=== PATIENT | male | born 1995 | race Caucasian/White ===

== ENCOUNTER 2017-06-16 11:25 | Day surgery (SDC) | payer BC ==
--- NOTE | 2017-06-16 12:21 | HP ---
PROCEDURE: Operation today. OUTPATIENT HISTORY: Mr. Elieser Chang is a 22-year-old male, [employer] student, lives in an apartment with roommates from [facility]. He has had 5 years ago an umbilical infection, required antibiotics and now presents again with the same. He was seen at [facility], had a CAT scan and labs, which we are waiting on. He has been started on clindamycin. He was seen today, had liquids this m orning. Otherwise, n.p.o. except for the water. ALLERGIES: None. TOBACCO: None. ALCOHOL: None. MEDICATIONS: None. PAST SURGICAL HISTORY: Bilateral meniscectomies, ear surgery. PAST MEDICAL HISTORY: Noncontributory. REVIEW OF SYSTEMS: Ten-point noncontributory. PHYSICAL EXAMINATION: VITAL SIGNS: 369 pounds, 5 foot 11 inches, 51 BMI, 142/81, 109, and 97 degrees. HEENT: Unremarkable. LUNGS: Clear to auscultation. CARDIAC: Regular rate and rhythm without murmur or gallop. ABDOMEN: Obese, soft, nontender. Supraumbilical area reveals a brownish drainage from a tender mass -like effect supraumbilical area. This is tender without overlying redness. There is about a 3 cm m ass. ASSESSMENT AND PLAN: Umbilical cyst abscess versus hernia. We would plan exploration in the operati ng room, repair of hernia present, excision of cyst, drainage of infection, risk of infection, bleedi ng, reoperation explained and he consents.
[2017-06-16] MEDS ORDERED: Ketorolac Tromethamine 30 MG/ML VIAL ONE (12:43)
[2017-06-16] MEDS ORDERED: Ketorolac Tromethamine 30 MG/ML VIAL IVP SCH (12:45)
[2017-06-16] MEDS ORDERED: Acetaminophen 1,000 MG in Premix Bag 1 BAG IVPB SCH (12:45)
[2017-06-16] MEDS ORDERED: Scopolamine 1.5 mg/72 hour Patch ONE (12:50)
[2017-06-16] MEDS ORDERED: Meropenem 2 GM, Admixture Fee 1 EACH in Sodium Chloride 0.9% 100 ML IVPB SCH (13:00)
[2017-06-16] MEDS ORDERED: Fentanyl 100 MCG/2 ML VIAL ONE (14:01)
[2017-06-16] MEDS ORDERED: Bupivacaine/Epinephrine 0.25% 30 ML VIAL ONE (14:02)
[2017-06-16] MEDS ORDERED: CEFAZOLIN/Water 2 GM/20 ML SYRINGE ONE (14:07)
[2017-06-16] MEDS ORDERED: traMADol HCl 50 MG TAB ONE (16:51)
[2017-06-16] MEDS ORDERED: PROPOFOL 200 MG/20 ML VIAL ONE (19:39)
[2017-06-16] MEDS ORDERED: Lidocaine 1% PF 5 ML VIAL ONE (19:39)
[2017-06-16] MEDS ORDERED: Dexamethasone 20 MG/5 ML VIAL ONE (19:39)
--- NOTE | 2017-06-16 21:23 | OP ---
DATE OF PROCEDURE: 06/16/2017 PREOPERATIVE DIAGNOSES: Umbilical cyst/abscess, recurrent infection, umbilical hernia, cyst abscess intermittently adherent to the umbilicus with a large defect in the umbilicus. POSTOPERATIVE DIAGNOSES: Umbilical cyst/abscess, recurrent infection, umbilical hernia, cyst abscess intermittently adherent to the umbilicus with a large defect in the umbilicus. PROCEDURE: Drainage of umbilical abscess with resection of umbilical cyst, resection of the umbilicu s, closure of umbilical hernia with PDS absorbable sutures. Wound left open to heal by secondary int ention. SURGEON: Marvin Almeida MD ANESTHESIA: General, local of 0.25% Marcaine with epinephrine 30 mL. DESCRIPTION OF PROCEDURE: The patient was taken to the operating room, where under general anesthesi a, abdomen was prepared with ChloraPrep, draped in routine fashion. Incision was made and drainage o f the supraumbilical abscess performed. There was a large umbilical cyst closely adherent to the umb ilicus with a large defect posteriorly. Umbilicus was resected using sharp dissection, cautery for h emostasis. Cyst was excised from the surrounding tissues and from the deep fascia, where there was a small hernia defect approximated with 2 interrupted sutures of 0 PDS pop-offs. Skin and subcutaneou s tissues were irrigated. Local anesthetic infiltrated into the skin and subcutaneous tissue. Wound packed open, healing by secondary intention. The patient tolerated the procedure well.
== END 2017-06-16 17:25 | disposition home or self-care (01) ==
LOC: SDC 11:25
PROVIDERS: ATTEND Specialist
PROC: 0WQF0ZZ Repair Abdominal Wall, Open Approach (ICD-10-PCS; principal; 2017-06-16)
DX: L72.8 Other follicular cysts of the skin and subcutaneous tissue (principal); K42.9 Umbilical hernia without obstruction or gangrene; Z98.890 Other specified postprocedural states
CPT/HCPCS: 87070; 87205; 88304; J0131; J1100; J1885; J2001; J2185; J2704; J3010; J7050